=== PATIENT | female | born 1995 | race Hispanic/Latino ===

== ENCOUNTER 2020-08-09 18:31 | Emergency (ER) | payer SELFPAY ==
[~2020-08-09] VITALS: Ht 180.3 cm; Wt 136.1 kg
[2020-08-09 19:05] VITALS: BP 130/88
[2020-08-09] MEDS ORDERED: OCTYL 2-CYANOACRYLATE 1 EACH TP ONE (20:28)
[2020-08-09] MEDS ORDERED: DIPH,PERTUSS(ACELL),TET VAC/PF 0.5 ML VIAL IM ONE (20:30)
== END 2020-08-09 21:11 | disposition home or self-care (01) ==
LOC: EDH 19:03
DX: S01.01XA Laceration without foreign body of scalp, initial encounter (principal); W01.0XXA Fall on same level from slipping, tripping and stumbling without subsequent striking against object, initial encounter; Y93.89 Activity, other specified; Y92.89 Other specified places as the place of occurrence of the external cause; Y99.8 Other external cause status
CPT/HCPCS: 12001; 90471; 90715